=== PATIENT | male | born 1970 | race Hispanic/Latino ===

== ENCOUNTER 2021-08-14 13:01 | Emergency (ER) | payer BC, SELFPAY ==
[2021-08-14 13:02] VITALS: BP 158/98; PULSE 100; RESP 18; TEMP 35.8; O2SAT 98; BMI 29.8
--- NOTE | 2021-08-14 13:07 | RAD_ITS ---
STUDY: X-RAY - RIGHT ANKLE REASON FOR EXAM: Male, 51 years old. Lateral ankle pain following injury. TECHNIQUE: 3 view(s) of the ankle. COMPARISON: None. FINDINGS: Normal visualized distal tibia and fibula. Transverse fracture of the lateral malleolus. Asymmetry of the ankle mortise. 1 no deep distal tibiofibular joint. Talar neck beak. The visualized subtalar, talonavicular, calcaneocuboid and tarsal articulations are normal. Soft tissue swelling. RAD/Ankle min 3 Views IMPRESSION: Transverse fracture of the lateral malleolus with overlying soft tissue swelling. Asymmetry of the ankle mortise. There is widening of the distal tibial fibular joint Electronically Signed: Alfonso Byrnes MD at 13:29 EDT ,
--- NOTE | 2021-08-14 13:43 | ED.RN ---
PT. STATES THEY JUMPED OUT OF BED ON AUGUST 11, AND LANDED ON RIGHT FOOT. HAS NOT BEEN BEARING WEIGHT ON RIGHT FOOT. DENIES ANY PREVIOUS INJURY.
--- NOTE | 2021-08-14 13:45 | ED.VIS.LOWEX ---
HPI History of Present Illness Chief Complaint: Lower Extremity Injury Detail of Chief Complaint: Right ankle injury Informant: patient Onset/Context/Timing Onset: Days (Saturday, August 11) Context: Sudden Onset Timing: Continuous Quality of Pain: Aching Location: Right ankle lateral Current Severity: Mild Maximum Severity: Severe Worsened by: Movement of any type Relieved by: Nothing Associated Symptoms Associated Symptoms: Positive for Loss of Funtion Narrative Narrative: Patient is a 51-year-old male presents with injury to his right ankle. He injured it on Saturday when he was getting out of bed. States he jumped out of bed. Is not been able to bear weight since. Denies paresthesia, anesthesia or motor weakness. He denies history of PAD or diabetes. Prior similar symptoms: No Recent Illness/Hospitalization: No PFSH PFSH Medical History no medical history no medical history Home Medications oxycodone-acetaminophen 1 tab PO Q6H PRN PRN 5 Days #20 tablet 08/14/21 [Rx Last Taken Unknown] Allergy/AdvReac Type Severity Reaction Status Date / Time No Known Allergies Allergy Verified 08/14/21 13:30 Social History (Updated 08/14/21 @ 13:[address] Jack Renee MD) household members: none Smoking Status: Former smoker substance use type: does not use ROS ROS ED Gastrointestinal Gastrointestinal: Denies nausea or vomiting Musculoskeletal Musculoskeletal: Denies arthralgias, back pain, myalgias or neck pain Integumentary Denies abscess, Abrasions or rash Neurologic Neurologic: Denies headache(s), paresthesias or weakness Hematologic/Lymphatic Hematologic/Lymphatic: Denies easy bleeding or easy bruising EXAM Physical Exam Const Vital Signs: 08/14/21 13:02 Temperature 96.4 F L Temperature Source Temporal Pulse Rate 100 Respiratory Rate 18 Blood Pressure 158/98 H Blood Pressure Mean 118 Pulse Ox 98 Oxygen Delivery Method Room Air Positive well nourished and well developed General Appearance ED: well developed; Negative for NAD HEENT normocephalic and atraumatic Eyes PERRL Eyes Narrative: Extract muscle intact. Sclerae anicteric. Neck full ROM Resp normal respiratory effort Cardio regular rate and regular rhythm Back/Spine no CVA tenderness Cervical Spine: Negative for cervical spine tenderness Thoracic Spine / Upper Back: Negative for thoracic spinal tenderness Lumbar Spine / Lower Back: Negative for lumbar spinal tenderness Extremity Extremity Narrative: Patient has ecchymosis lateral aspect of the right ankle and foot. There is no pain ovation over the base of the fifth metatarsal. There is pain ovation over the lateral malleolus. There is minimal discomfort over the medial malleolus. Patient and significant discomfort unable to assess for laxity with anterior drawer test. DP and PT pulse are palpable. Neuro oriented x3, CN's II-XII intact bilaterally, moves all extremities and no sensory deficits noted Sensorium / Orientation: alert Motor Exam: strength 5/5 throughout Psych mental status grossly normal Skin no wounds Lesions: no lesions Rashes: no rashes MDM MDM MDM Narrative Medical decision making narrative: X-rays obtained to evaluate for fracture versus sprain and patient was medicated with oxycodone. Radiography Diagnostic Testing: Clinical Impression(s) from Imaging Studies Ankle X-Ray 08/14/21 13:07 IMPRESSION: Transverse fracture of the lateral malleolus with overlying soft tissue swelling. Asymmetry of the ankle mortise. There is widening of the distal tibial fibular joint Electronically Signed: Alfonso Byrnes MD at 13:29 EDT , Three-view x-ray of the ankle was independently interpreted by me and patient has a spiral Flores B type distal lateral malleolus fracture with 5 to 10% displacement. This case was discussed with Dr. Zheng. Agrees with posterior splint nonweightbearing and crutches Procedures Lower Extremity Splints Lower Extremity Splint: Plaster and - (Posterior short leg) Splint Fabrication: Fabricated Location: Right Discharge Plan Triage Chief Complaint: Lower Extremity Injury ED Provider: Jack Renee Dx/Rx/DC Orders Clinical Impression: Fracture of distal end of right fibula Instructions: ED Ankle Fracture, Distal Fibula Prescriptions: New oxycodone-acetaminophen [oxycodone-acetaminophen] 1 TABLET tablet 1 tab PO Q6H PRN PRN (Reason: Ankle pain) 5 Days Qty: 20 RF: 0 Primary Care Provider: Care Physician,No Primary Referrals: Milan Zheng DPM [STAFF PHYSICIAN] - 5-7 Days Care Physician,No Primary [Primary Care Provider] - Activity Restrictions/Additional Instructions: 1. Elevate toes above your nose 2. Keep splint absolutely clean and dry 3. Apply ice to ankle 6-8 times a day 4. Absolutely no weightbearing Disposition Disposition: Home, Self Care
[2021-08-14] MEDS: oxyCODONE 5 MG Tablet PO (13:47)
[2021-08-14 15:29] VITALS: BP 143/86; PULSE 86; O2SAT 96
--- NOTE | 2021-08-14 17:38 | CM.ED ---
KATHY Note Referral Source: train control technician Reason: Support for patient RN Bonny stated that she advised patient that he broke his ankle and he is crying. SW met with patient. He said that he has been off work, terminated, since 06/26/21. He said that he has been trying to get ahead and then expressed concern regarding finances. Patient resides with his sister and nephew. SW provided [employer] resources and information about the invi insurance. Patient said that he has insurance because it lasts 90 day after termination. Patient's sister came in and offered support to patient. She said that she will help patient with anything as he has helped me.. all of us. Patient was able to do relaxing breathing and appeared to be in control of his emotions when this group underwriter left. Plan: Resources provided Melanie SANCHEZ
== END 2021-08-14 15:30 | disposition home or self-care (01) ==
PROVIDERS: Emergency Provider Emergency Medicine; Visit Provider Emergency Medicine
DX: S82.61XA Displaced fracture of lateral malleolus of right fibula, initial encounter for closed fracture (principal); W17.89XA Other fall from one level to another, initial encounter; Y92.9 Unspecified place or not applicable; Z87.891 Personal history of nicotine dependence
CPT/HCPCS: 29515; 73610; 99283